=== PATIENT | female | born 1995 | race Caucasian/White ===

== ENCOUNTER → 2021-05-21 07:58 | Outpatient (BNVA) | payer MEDICARE, MEDICAID, SELFPAY | PROVIDERS: Family Provider Family Medicine; Visit Provider Nurse Practitioner Women's Health | DX: N92.6 Irregular menstruation, unspecified (principal) | CPT/HCPCS: 81025 ==

== ENCOUNTER → 2021-06-12 14:06 | Outpatient (BNVA) | payer MEDICARE, MEDICAID, SELFPAY | PROVIDERS: Family Provider Family Medicine; Visit Provider Obstetrics & Gynecology | DX: Z36.87 Encounter for antenatal screening for uncertain dates (principal); Z3A.11 11 weeks gestation of pregnancy | CPT/HCPCS: 81000 ==

== ENCOUNTER → 2021-06-17 10:25 | Outpatient (BNVA) | payer MEDICARE, MEDICAID, SELFPAY | PROVIDERS: Family Provider Family Medicine; Visit Provider Obstetrics & Gynecology | DX: Z86.32 Personal history of gestational diabetes (principal); O09.292 Supervision of pregnancy with other poor reproductive or obstetric history, second trimester; Z86.19 Personal history of other infectious and parasitic diseases; Z3A.14 14 weeks gestation of pregnancy | CPT/HCPCS: 80307; 81000; 82950; 85027; 86592; 86762; 86803; 86850; 86900; 87086; 87340; 87491; 87591; 87806; 88175 ==

== ENCOUNTER 2021-06-21 09:22 | Outpatient (CLI) | payer MEDICARE, MEDICAID, SELFPAY ==
[2021-06-21 10:28] LABS: Glucose Fasting 75 mg/dL (74-109)
[2021-06-21 12:01] LABS: Glucose 1 Hour 155 mg/dL
[2021-06-21 13:01] LABS: Glucose 2 Hour 183 mg/dL
[2021-06-21 14:00] LABS: Glucose 3 Hour 114 mg/dL
== END 2021-06-21 09:23 | disposition home or self-care (01) ==
PROVIDERS: Visit Provider Obstetrics & Gynecology
DX: O09.299 Supervision of pregnancy with other poor reproductive or obstetric history, unspecified trimester (principal); Z86.32 Personal history of gestational diabetes
CPT/HCPCS: 36415; 82951; 82952

== ENCOUNTER → 2021-07-02 14:25 | Outpatient (BNVA) | payer MEDICARE, MEDICAID, SELFPAY | PROVIDERS: Visit Provider Nurse Practitioner Women's Health | DX: Z34.80 Encounter for supervision of other normal pregnancy, unspecified trimester (principal) | CPT/HCPCS: 81000 ==

== ENCOUNTER → 2021-07-26 08:06 | Outpatient (BNVA) | payer MEDICARE, MEDICAID, SELFPAY | PROVIDERS: Visit Provider Obstetrics & Gynecology | DX: Z34.92 Encounter for supervision of normal pregnancy, unspecified, second trimester (principal) | CPT/HCPCS: 76805 ==

== ENCOUNTER → 2021-07-30 14:33 | Outpatient (BNVA) | payer MEDICARE, MEDICAID, SELFPAY | PROVIDERS: Visit Provider Nurse Practitioner Women's Health | DX: Z34.80 Encounter for supervision of other normal pregnancy, unspecified trimester (principal) | CPT/HCPCS: 81000 ==

== ENCOUNTER → 2021-08-21 14:13 | Outpatient (BNVA) | payer MEDICARE, MEDICAID, SELFPAY | PROVIDERS: Visit Provider Obstetrics & Gynecology | DX: Z34.80 Encounter for supervision of other normal pregnancy, unspecified trimester (principal) | CPT/HCPCS: 81000 ==

== ENCOUNTER → 2021-09-18 10:29 | Outpatient (BNVA) | payer MEDICARE, MEDICAID, SELFPAY | PROVIDERS: Visit Provider Obstetrics & Gynecology | DX: Z34.80 Encounter for supervision of other normal pregnancy, unspecified trimester (principal); Z86.19 Personal history of other infectious and parasitic diseases; O09.299 Supervision of pregnancy with other poor reproductive or obstetric history, unspecified trimester; Z86.32 Personal history of gestational diabetes; O09.293 Supervision of pregnancy with other poor reproductive or obstetric history, third trimester; Z3A.28 28 weeks gestation of pregnancy | CPT/HCPCS: 81000; 82951; 82952; 85027 ==

== ENCOUNTER → 2021-10-01 12:32 | Outpatient (BNVA) | payer MEDICARE, MEDICAID, SELFPAY | PROVIDERS: Visit Provider Obstetrics & Gynecology | DX: Z34.80 Encounter for supervision of other normal pregnancy, unspecified trimester (principal) | CPT/HCPCS: 81000 ==

== ENCOUNTER → 2021-10-30 08:13 | Outpatient (BNVA) | payer MEDICARE, MEDICAID, SELFPAY | PROVIDERS: Visit Provider Nurse Practitioner Women's Health | DX: Z34.80 Encounter for supervision of other normal pregnancy, unspecified trimester (principal) | CPT/HCPCS: 81000 ==

== ENCOUNTER → 2021-11-13 11:38 | Outpatient (BNVA) | payer MEDICARE, MEDICAID, SELFPAY | PROVIDERS: Visit Provider Obstetrics & Gynecology | DX: Z34.80 Encounter for supervision of other normal pregnancy, unspecified trimester (principal) | CPT/HCPCS: 81000; 87081 ==

== ENCOUNTER → 2021-11-27 10:48 | Outpatient (BNVA) | payer MEDICARE, MEDICAID, SELFPAY | PROVIDERS: Visit Provider Obstetrics & Gynecology | DX: Z34.80 Encounter for supervision of other normal pregnancy, unspecified trimester (principal) | CPT/HCPCS: 81000 ==

== ENCOUNTER → 2021-12-04 10:21 | Outpatient (BNVA) | payer MEDICARE, MEDICAID, SELFPAY | PROVIDERS: Visit Provider Obstetrics & Gynecology | DX: Z34.80 Encounter for supervision of other normal pregnancy, unspecified trimester (principal) | CPT/HCPCS: 76815; 81000 ==

== ENCOUNTER 2021-12-05 20:30 | Inpatient (IN) | payer MEDICARE, MEDICAID, SELFPAY ==
[2021-12-05] VITALS (13 sets, daily range): BP systolic 117–136; BP diastolic 59–88; PULSE 74–111; RESP 17–18; BMI 29.5
[2021-12-05 19:37] LABS: Actim Prom Positive
[2021-12-05 21:57] LABS: Basophils % 0.3 %; Eosinophils % 0.1 %; Hematocrit 47.3 % (37.0-47.0); Lymphocytes # 2.3 10^3/uL (0.8-4.8); Lymphocytes % 16.2 %; Mean Corpuscular HGB Conc 29.6 g/dL (30.0-36.0); Mean Corpuscular Hemoglobin 28.6 pg (28.0-34.0); Mean Corpuscular Volume 96.7 fl (81-99); Mean Platelet Volume 11.6 fL (7.4-10.4); Monocytes # 0.7 10^3/uL (0.2-0.9); Nucleated Red Blood Cells % 0 %; Platelet Count 211 10^3/cmm (130-400); Red Blood Count 4.89 10^6/uL (4.1-5.3); Red Cell Distribution Width 14.6 % (12.1-15.1); White Blood Count 14.2 10^3/uL (4.0-10.0)
[2021-12-05] MEDS: oxytocin 30 UNIT/500 ML BAG 600 UNIT IV (22:35)
[2021-12-05] MEDS: dextrose 5%-lactated ringers 1,000 ML 125 ML IV (22:35)
[2021-12-05 22:36] LABS: Slide Review Slide Review Perform
[2021-12-05] MEDS: lidocaine 2% INJ 20 mL INJECTION (22:39)
--- NOTE | 2021-12-05 22:56 | PM.OPHPUD ---
Labor & Delivery H&P Update Date of Procedure: December 05, 2021 Date H&P Performed: 12/04/21 H&P update information: I have reviewed H&P completed within last 30 days, I have examined patient prior to procedure and Changes to prior documentation as noted here Changes to previous documentation: The patient presented with SROM. cervix /-2 Admission Diagnosis: . IUP @ 39 weeks 2 days Related Problem List Diagnoses (1) Supervision of other normal : (2) H/O herpes genitalis:
--- NOTE | 2021-12-05 23:05 | P.PCNOB_ITS ---
Delivery Note: Date of delivery: December 05, 2021 Pre-delivery diagnoses: iup@ 39 weeks 2 days Post-delivery diagnoses: same, delivered Procedure: Delivering Physician: rosa Estimated blood loss (mL): 25 Findings: term male in the PARAG presentation with single nuchal cord Pre-Delivery Course: The patient presented with SROM and active labor. She had complete cervical dilation and began to push. Delivery: The patient had complete cervical dilation and began to push. The head delivered in the PARAG position over an intact perineum under no anesthesia. The nose and mouth were bulb suctioned. The shoulders and body delivered atraumatically. The baby was placed onto the mother's abdomen. The cord was clamped and cut. Cord blood was obtained. The placenta delivered spontaneously. It was inspected and found to be intact. Inspection of the perineum revealed a small second-degree laceration which was repaired in the normal fashion. Estimated blood loss 25 mL. Apgars on baby were 9 at 1 minute and 9 at 5 minutes. Weight of baby is 6 pounds 9 ounces. Mother and baby were stable post delivery. 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
[2021-12-06] VITALS (20 sets, daily range): BP systolic 94–125; BP diastolic 58–75; PULSE 66–88; RESP 14–18; TEMP 36.7–36.9; O2SAT 97–99
[2021-12-06] MEDS: prenatal vitamin Capsule 1 CAP PO (09:19)
[2021-12-06] MEDS: ibuprofen 800 mg tablet PO ×2 (09:19→15:00)
[2021-12-06] MEDS: docusate sodium 100 mg Capsule PO ×2 (09:19→17:20)
[2021-12-06 12:14] LABS: Hematocrit 39.1 % (37.0-47.0); Hemoglobin 12.6 g/dL (11.5-15.3); Mean Corpuscular HGB Conc 32.2 g/dL (30.0-36.0); Mean Corpuscular Hemoglobin 28.6 pg (28.0-34.0); Mean Corpuscular Volume 88.7 fl (81-99); Mean Platelet Volume 11.8 fL (7.4-10.4); Platelet Count 266 10^3/cmm (130-400); Red Blood Count 4.41 10^6/uL (4.1-5.3); Red Cell Distribution Width 14.5 % (12.1-15.1); White Blood Count 17.6 10^3/uL (4.0-10.0)
--- NOTE | 2021-12-06 12:51 | P.PN_ITS ---
Subjective Subjective: The patient is doing well today. no concerns. Vitals/I&O/Wt Last Vital Signs Temp 98.0 F 12/06/21 11:57 Pulse 66 12/06/21 11:57 Resp 18 12/06/21 11:57 BP 112/72 12/06/21 11:57 Pulse Ox 99 12/06/21 11:57 12/05/21 12/06/21 12/06/21 22:59 06:59 14:59 Intake Total 50 / 50 825 / 875 Output Total 500 / 500 Balance 50 / 50 325 / 375 Weight last 48 hrs Weight 151 lb Physical Exam Const: COMMON NORMALS: no acute distress, average body habitus, patient oriented x3, no limitations, healthy appearing, alert and well nourished GENERAL APPEARANCE: cooperative, comfortable, well kempt and well developed ORIENTATION/CONSCIOUSNESS: Yes awake, Yes oriented to person, Yes oriented to place and Yes oriented to time Resp: COMMON NORMALS: normal respiratory effort EFFORT & INSPECTION: Yes able to speak in complete sentences GI: COMMON NORMALS: Soft to palpation and non-tender PALPATION: Yes Soft to palpation Extremity: COMMON NORMALS: no calf tenderness Neuro: COMMON NORMALS: patient oriented x3 SENSORIUM/ORIENTATION: Yes alert, Yes oriented to person, Yes oriented to place and Yes oriented to time Psych: APPEARANCE: Yes well kempt Data : 12/06/21 11:00 Attestations Medical Necessity Statement*: The patient will stay two midnights due to time of delivery Coding Level of Care Code Acute 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
[2021-12-07 04:27] VITALS: BP 114/76; PULSE 83; RESP 17; TEMP 36.5; O2SAT 98
[2021-12-07] MEDS: prenatal vitamin Capsule 1 CAP PO (09:39)
[2021-12-07] MEDS: docusate sodium 100 mg Capsule PO (09:39)
[2021-12-07] MEDS: ibuprofen 800 mg tablet PO (09:39)
[2021-12-07 09:42] VITALS: BP 133/90; PULSE 94; RESP 17; TEMP 37; O2SAT 99
--- NOTE | 2021-12-07 10:00 | PM.DCS ---
Discharge Providers Date of Admission: 12/05/21 20:30 Date of Discharge: December 07, 2021 Attending Provider at Admission: Erin Lin MD Attending Provider at Discharge: Erin Lin MD Diagnoses at Discharge Discharge Diagnosis (1) Supervision of other normal : Status: Acute (2) H/O herpes genitalis: Status: Acute Reason for Visit Reason for Visit: contractions, possible ROM Hospital Course Hospital Course The patient was admitted in active labor. She had spontaneous delivery of a term male . She did well and was ready for discharge on day #2 Physical Exam Narrative: The patient is doing well this morning. No concerns. Const: COMMON NORMALS: no acute distress, average body habitus, patient oriented x3, no limitations, healthy appearing, alert and well nourished GENERAL APPEARANCE: cooperative, comfortable, well kempt and well developed ORIENTATION/CONSCIOUSNESS: Yes awake, Yes oriented to person, Yes oriented to place and Yes oriented to time Resp: COMMON NORMALS: normal respiratory effort and clear to auscultation bilaterally AUSCULTATION: clear to auscultation bilaterally GI: COMMON NORMALS: Soft to palpation and non-tender PALPATION: Yes Soft to palpation Extremity: COMMON NORMALS: no calf tenderness Neuro: COMMON NORMALS: patient oriented x3 SENSORIUM/ORIENTATION: Yes alert, Yes oriented to person, Yes oriented to place and Yes oriented to time Psych: APPEARANCE: Yes well kempt Discharge Data Studies Completed and Pending Laboratory Results WBC 17.6 10^3/uL (4.0-10.0) H 12/06/21 11:00 RBC 4.41 10^6/uL (4.1-5.3) 12/06/21 11:00 Hgb 12.6 g/dL (11.5-15.3) 12/06/21 11:00 Hct 39.1 % (37.0-47.0) 12/06/21 11:00 MCV 88.7 fl (81-99) D 12/06/21 11:00 MCH 28.6 pg (28.0-34.0) 12/06/21 11:00 MCHC 32.2 g/dL (30.0-36.0) D 12/06/21 11:00 RDW 14.5 % (12.1-15.1) 12/06/21 11:00 Plt Count 266 10^3/cmm (130-400) 12/06/21 11:00 MPV 11.8 fL (7.4-10.4) H 12/06/21 11:00 Neut % (Auto) 78.0 % 12/05/21 21:43 Lymph % (Auto) 16.2 % 12/05/21 21:43 [place] % (Auto) 5.0 % 12/05/21 21:43 Eos % (Auto) 0.1 % 12/05/21 21:43 Baso % (Auto) 0.3 % 12/05/21 21:43 Neut # (Auto) 11.10 10^3/uL (1.8-7.7) H 12/05/21 21:43 Lymph # (Auto) 2.3 10^3/uL (0.8-4.8) 12/05/21 21:43 [place] # (Auto) 0.7 10^3/uL (0.2-0.9) 12/05/21 21:43 Eos # (Auto) 0.0 10^3/uL (0.0-0.8) 12/05/21 21:43 Baso # (Auto) 0.0 10^3/uL (0.0-0.1) 12/05/21 21:43 Nucleated RBC % (auto) 0 % 12/05/21 21:43 Nucleated RBCs # 0.0 /100WBC 12/05/21 21:43 Insulin-like GF I Positive 12/05/21 19:27 Vitals Last Vital Signs Temp 98.6 F 12/07/21 09:42 Pulse 94 12/07/21 09:42 Resp 17 12/07/21 09:42 BP 133/90 12/07/21 09:42 Pulse Ox 99 12/07/21 09:42 Discharge Plan Discharge Patient Disposition: Home Condition: Stable Prescriptions: Continued prenat.vits,jace,[id number] Tablet 1 tab PO DAILY 0RF ferrous sulfate 325 mg (65 mg iron) tablet 325 mg PO BID 0RF (DME) breast pump [Pump In Style Advanced] Device See Rx Instructions .MEDSUPPLY Qty: 1 0RF Rx Instructions: As directed famotidine [Pepcid] 20 mg tablet 20 mg PO DAILY Qty: 90 0RF valacyclovir 500 mg tablet 500 mg PO BID 28 Days Qty: 56 0RF metoclopramide HCl [Reglan] 5 mg tablet 5 mg PO Q6H PRN (Reason: nausea and vomiting) Qty: 20 1RF Rx Instructions: As needed for nausea Discharge Orders: Discharge Order (Routine); Ordered 12/07/21 Ordered By: Erin Lin Patient Instructions: Depression (DC), Bleeding (DC), Preeclampsia and Eclampsia After Delivery (GEN), OB Discharge Report, OB Food/Drug Interaction Guide, OB Care at Home, Opioid Safety, OB Vaginal Deliveries - [facility] Discharge Attestations Time Spent in Discharge Care*: less than 30 min Quality Metrics Clinical Quality Measures [ No reported AMI, CVA or VTE this stay] Coding Level of Care Code Acute Chg FW DC note Diagnoses Supervision of other normal Z34.80 H/O herpes genitalis Z86.19
[2021-12-07 11:30] VITALS: BP 133/90; PULSE 94; RESP 17; TEMP 37; O2SAT 99
== END 2021-12-07 11:30 | disposition home or self-care (01) | DRG 806 ==
LOC: OPOB 22:50 → OBGYN 22:50
PROVIDERS: Admitting Provider Obstetrics & Gynecology; Visit Provider Obstetrics & Gynecology
DX: O69.9XX0 Labor and delivery complicated by cord complication, unspecified, not applicable or unspecified (principal); O98.32 Other infections with a predominantly sexual mode of transmission complicating childbirth; Z37.0 Single live birth; O70.1 Second degree perineal laceration during delivery; A60.00 Herpesviral infection of urogenital system, unspecified; O99.02 Anemia complicating childbirth; D64.9 Anemia, unspecified; Z3A.39 39 weeks gestation of pregnancy
CPT/HCPCS: 59025; 59409; 76815; 81000; 83986; 84112; 85025; 85027; 99211

== ENCOUNTER → 2022-11-07 09:55 | Outpatient (BNVA) | payer MEDICARE, MEDICAID, SELFPAY | PROVIDERS: Visit Provider Nurse Practitioner Women's Health | DX: Z30.9 Encounter for contraceptive management, unspecified (principal); D64.9 Anemia, unspecified | CPT/HCPCS: 81025; 85025 ==

== ENCOUNTER → 2022-11-21 13:50 | Outpatient (BNVA) | payer MEDICARE, BC, MEDICAID, SELFPAY | PROVIDERS: Visit Provider Nurse Practitioner Women's Health | DX: Z32.00 Encounter for pregnancy test, result unknown (principal) | CPT/HCPCS: 84702 ==

== ENCOUNTER → 2024-07-04 11:32 | Outpatient (BNVA) | payer MEDICARE, BC, MEDICAID, SELFPAY | PROVIDERS: Visit Provider Nurse Practitioner Women's Health | DX: Z01.419 Encounter for gynecological examination (general) (routine) without abnormal findings (principal) | CPT/HCPCS: 87624 ==